=== PATIENT | female | born 1980 | race Hispanic/Latino ===

== ENCOUNTER 2018-10-07 22:44 | Emergency (ER) | payer SELFPAY ==
[2018-10-07 23:04] LABS: Bilirubin Negative (Negative); Blood, Urine Negative (Negative); Clarity Clear (Clear); Glucose, Urine (Dipstick) Negative (Negative); Leukocyte Negative (Negative); Nitrite Negative (Negative); Protein, Urine (Dipstick) Negative (Neg-Trace); Urobilinogen 0.2 mg/dL (0.2-1.0); pH, Urine 5.5 (5.0-9.0)
[2018-10-07] MEDS ORDERED: Ondansetron PF 4 MG/2 ML Vial ONE ×2 (23:08→23:42)
[2018-10-07 23:11] LABS: #Basophils 0.1 thou/uL (0.0-0.2); #Eosinphils 0.1 thou/uL (0.0-0.7); #Lymphocytes 2.2 thou/uL (1.20-3.40); #Monocytes 0.8 thou/uL (0.11-0.59); #Neutrophils 12.9 thou/uL (1.40-6.50); %Basophils 0.5 % (0.0-1.0); %Eosinophils 0.6 % (0.0-10.0); %Lymphocytes 13.5 % (21.0-51.0); %Monocytes 4.7 % (0.0-10.0); %Neutrophils 80.6 % (42.0-75.0); Hemoglobin 13.4 g/dL (12.0-16.0); Mean Corpuscular Hemoglobin 29.9 pg (27.0-31.0); Mean Platelet Volume 8.1 fL (7.4-10.4); Platelet Count 318 thou/uL (130-400); RBC Distribution Width 11.9 % (11.5-14.5); Red Blood Cell (RBC) Count 4.47 mill/uL (4.20-5.40); White Blood Cell (WBC) Count 15.9 thou/uL (4.8-10.8)
[2018-10-07 23:33] LABS: Pregnancy Test - Urine (BHCG) Negative (Negative); Pregu Control Background? CLEAR/WHITE (CLR/WHITE); Pregu Control Bar Appear? YES (CONTROL BAR)
[2018-10-07 23:35] LABS: ALT (SGPT) 28 U/L (8-55); AST (SGOT) 21 U/L (5-34); Albumin 4.7 g/dL (3.5-5.0); Alkaline Phosphatase 84 U/L (40-150); Anion Gap 14 mmol/L (10-20); BUN (Urea Nitrogen) 13 mg/dL (7.0-18.7); Bilirubin, Total 0.3 mg/dL (0.2-1.2); Calc. Creatinine Clearance 0 mL/min (70-130); Carbon Dioxide 24 mmol/L (22-29); Chloride 103 mmol/L (98-107); Estimated GFR-MDRD 90; Glucose 112 mg/dL (70-105); Lipase 22 U/L (8-78); Potassium 3.6 mmol/L (3.5-5.1); Protein, Total 8.7 g/dL (6.0-8.3); Sodium 137 mmol/L (136-145)
[2018-10-08] MEDS ORDERED: Sodium Chloride 0.9% 100 ML ONE (01:09)
[2018-10-08] MEDS ORDERED: Piperacillin/Tazobactam 3.375 GM VIAL ONE (01:09)
[2018-10-08] MEDS ORDERED: Ketorolac Tromethamine 30 MG/ML VIAL ONE (01:10)
[2018-10-08] MEDS ORDERED: Sodium Chloride 0.9% 500 ML ONE (01:12)
[2018-10-08] MEDS ORDERED: Promethazine HCl 25 MG/ML VIAL ONE (01:12)
[2018-10-08] MEDS ORDERED: metroNIDAZOLE 500 MG/100 ML BAG ONE (01:34)
--- NOTE | 2018-10-08 08:50 | CT ---
PRELIMINARY REPORT/[facility]/EMERGENTY AFTER-HOURS PROCEDURE Addendum created by Serge Licea MD on 10/08/2018 1:23 AM Central Time ([place] & [place]) CT Abdomen and Pelvis Without Contrast EXAM DATE/TIME: 10/08/2018 12:25 AM CLINICAL HISTORY: 37 years old, female; Pain; Abdominal pain; Acute; Patient HX: Abdominal pain and vomiting for 7 hour s TECHNIQUE: Axial computed tomography images of the abdomen and pelvis without contrast. All CT scans at this facility use at least one of these dose optimization techniques: automated expos ure control; mA and/or kV adjustment per patient size (includes targeted exams where dose is matched to clinical indication); or iterative reconstruction. Coronal and sagittal reformatted images were cr eated and reviewed. COMPARISON: No relevant prior studies available. FINDINGS: Lower thorax: No acute findings. ABDOMEN: Liver: There is mild hepatomegaly. Gallbladder and bile ducts: Normal. No calcified stones. No ductal dilation. Pancreas: Normal. No ductal dilation. Spleen: Normal. No splenomegaly. Adrenals: Normal. No mass. Kidneys and ureters: There is punctate nonobstructive left nephrolithiasis. Stomach and bowel: Normal. No obstruction. No mucosal thickening. Appendix: The appendix is dilated measuring up to 12 mm diameter and fluid-filled with mild periappen diceal fat stranding suspicious for acute appendicitis without signs of perforation. The appendix is seen best on axial image 63 and coronal image 71. PELVIS: Bladder: Unremarkable as visualized. Reproductive: Unremarkable as visualized. ABDOMEN and PELVIS: Intraperitoneal space: Normal. No free air. No significant fluid collection. Bones/joints: No acute fracture. No dislocation. Soft tissues: Unremarkable. Vasculature: Normal. No abdominal aortic aneurysm. Lymph nodes: Normal. No enlarged lymph nodes. IMPRESSION: 1. There is punctate nonobstructive left nephrolithiasis. 2. The appendix is dilated measuring up to 12 mm diameter and fluid-filled with mild periappendiceal fat stranding suspicious for acute appendicitis without signs of perforation. Thank you for allowing us to participate in the care of your patient. Dictated and Authenticated by: Serge Licea MD 10/08/2018 12:50 AM Central Time ([place] & [place]) FINAL REPORT EMERGENCY AFTER HOURS CT ABDOMEN AND PELVIS: Date: 10/08/18 IMPRESSION: I agree with the preliminary interpretation given by [place]. POS: [facility]
== END 2018-10-08 02:12 | disposition short-term general hospital (02) ==
LOC: NAV ERS 22:44
DX: K35.80 Unspecified acute appendicitis (principal)
CPT/HCPCS: 36415; 74176; 80053; 81003; 81025; 83690; 85025; 96365; 96368; 96372; 96375; J1885; J2405; J2543; J2550; J7050